=== PATIENT | female | born 1955 ===

== ENCOUNTER → 2019-09-28 | Outpatient (REF) | payer OTHER ==
[2019-09-28 17:24] LABS: FERRITIN 116 NG/ML (8-252); IRON (FE) 55 UG/DL (50-170); PERCENT SATURATION 20.6 % (13.2-45.0); TOTAL IRON BINDING CAPACITY 267 UG/DL (250-450)
[2019-09-28 17:32] LABS: FOLATE > 24.0 NG/ML; VITAMIN B12 LEVEL 991 PG/ML
== END ==
LOC: M LAB REF 16:41
PROVIDERS: ATTEND Internal Medicine Nephrology
DX: D64.9 Anemia, unspecified (principal)